=== PATIENT | female | born 1945 | race Caucasian/White ===

== ENCOUNTER 2016-11-17 08:41 | Day surgery (SDC) | payer MEDICARE ==
--- NOTE | 2016-11-16 13:47 | PCM.ANEPRE ---
Anesthesia Pre-Op Review Reason for Review: BMI >45 COMORBIDITIES Anesthesia Recommendations: Proceed with Procedure Additional Comments 71 yo woman for hand case (est 90 min) with Dr Ortiz; BMI 45.8, hgb A1C 5.8, colonoscopy with sedation 08/18/15 without problems, EF 55-60% in 2013. Ok to proceed with usual DOS evaluation. Chart Reviewed by: Syd Brewer MD, MD November 16, 2016 13:47
[2016-11-17] VITALS (11 sets, daily range): BP systolic 139–161; BP diastolic 62–77; PULSE 50–75; RESP 14–23; O2SAT 94–97
[~2016-11-17] VITALS: Ht 160 cm; Wt 112.8 kg
[~2016-11-17 08:41] MED LIST: AMMO385C5 TP; ASCO100089 PO; ASPI81TA3 PO; ATOR20TA65 PO; CHOL100045 PO; CLOB15CR3 TOP; KETACONAZOLE CREAM TP; LACT1CAP67 PO; LOSA25TA21 PO; Lactated Ringer's 1,000 ML IV SCH; MODA200T41 PO; MULT-1073 PO; MYCC TP; NAPR500T PO; PRAM0.252 PO; VILA40TA PO
[2016-11-17] MEDS ORDERED: fentaNYL-PF 50 mCg/mL 2 mL Inj ONE (08:42)
[2016-11-17] MEDS ORDERED: Propofol 10,000 mCg/mL 20 mL Inj ONE (08:42)
[2016-11-17] MEDS ORDERED: Ondansetron 2 mg/mL 2 mL Inj ONE (08:42)
[2016-11-17] MEDS ORDERED: Glycopyrrolate 0.2 MG/ML 1mL Inj ONE (08:42)
[2016-11-17] MEDS ORDERED: Lidocaine PF 1% 30 mL Inj ONE (08:42)
[2016-11-17] MEDS: Lactated Ringer's 1,000 ML IV SCH ×3 (09:57→11:05)
--- NOTE | 2016-11-17 10:02 | PCM.HPANE ---
Patient Data Surgeon Admitting Provider: Attending Provider:Sukhdeep Ortiz DO Primary Care Physician:Luis Graham DO Other Provider:Amy Brown Anesthesia Reason for Visit Left 1ST Carpometacarpal Arthritis Ht/WT & BMI Height (Feet): 5 Height (Inches): 3.00 Weight (Kilograms): 112.8 Body Mass Index 44.00 Allergies Coded Allergies: nickel (Verified Allergy, Severe, RASH, 11/16/16) Sulfa (Sulfonamide Antibiotics) (Verified Allergy, Unknown, UNKNOWN, ) Past Anesthesia History Anesthesia History: Denies:: Abnormal Airway, Anesthesia Reactions, Difficult Intubation, Fam Anesthesia Reaction, Fam Malignant Hypertherm, Malignant Hyperthermia Diabetes History Hx Diabetes?: Yes (10/31/16 HGB A1C 5.8) Type of Diabetes: Type II Glycemic Control: Diet Controlled Current Bedside Blood Glucose: 110 MRSA MRSA: No Medications Blood Thinner: Aspirin Hypertension Medication: Yes (LOSARTAN) Home Meds Incl Beta Marcio: No Reported Medications Cholecalciferol (Vitamin D3) (Vitamin D)1,000 Unit Capsule2,000 Unit PO DAILY # 1 BOTTLE Ref 0 11/16/16 Ascorbic Acid (Vitamin C)1,000 Mg Tab.chew1,000 Mg PO DAILY Ref 0 11/16/16 Vilazodone (Viibryd)40 Mg Ldffdo23 Mg PO BIDWM 11/16/16 Lactobacillus Combination No.4 (Probiotic)1 Each Capsule1 Each PO DAILY 11/16/16 Nystatin 60 Applic/15 Gm Cream1 Applic TP BID 11/16/16 Naproxen (Naprosyn)500 Mg Lbpnux340 Mg PO BID PRN For Pain Ref 0 11/16/16 Pramipexole Dihydrochloride (Mirapex)0.25 Mg Tablet0.25-0.5 Mg PO QPM 11/16/16 [Ketaconazole Cream] No Conflict Check1 Applic TP DAILY 11/16/16 Ammonium Lactate 140 Gm Cream..g.1 Applic TP DAILY 11/16/16 Losartan Potassium 25 Mg Kmcwbi90 Mg PO DAILY 10/30/13 Modafinil 200 Mg Wmcjig745 Mg PO DAILY 10/30/13 Clobetasol Propionate/Emoll (Clobetasol Emollient 0.05% Crm)15 Gm Cream..g.1 Appl TOP BID 10/30/13 Multivits-Min/FA/Lycopene/Lut (Centrum Silver Tablet)1 Each Tablet1 Each PO DAILY 10/30/13 Atorvastatin Calcium 20 Mg Trufzc55 Mg PO DAILY 10/30/13 Aspirin Chew 81 Mg Tab.chew81 Mg PO DAILY 10/30/13 Discontinued Reported Medications Oxybutynin Chloride 5 Mg Tablet5 Mg PO BID 10/30/13 Paroxetine 40 Mg Jciyko11 Mg PO DAILY 10/30/13 Melatonin/Pyridoxine HCl (B6) (Melatonin 10 mg Tablet)1 Each Tab.mphase1 Each PO PRN PRN For Anxiety 10/30/13 History History of ENT Problems?: Yes HEENT History: Positive for:: Cataracts (S/P B/L EXTRACTIONS) Denies:: Abnormal Airway Difficult Intubation Dysphagia Hearing Problem Sinus Problem Denture Type: None Teeth Condition: Within Normal Limits Hx of Heart Problems?: Yes Cardiovascular History: Positive for:: Hypertension (HYPERLIPIDEMIA) Denies:: AICD Atrial Fibrillation Chest Pain Heart Murmur (ECHO 10/2013 EF 55-60%) Irregular Heartbeat Pacemaker Valvular Heart Disease Other Cardiac History: HX OF ANEMIA-??ETIOLOGY Other History/Comments No CP; greater than 4 mets Hx of Respiratory Problem?: No Respiratory History: Positive for:: Use of C-PAP Machine (LUDIVINA+ W/ CPAP SLEEP STUDY 09/2013) Denies:: Asthma COPD Cough Hemoptysis Pneumonia (HOSP. ADMISSION FOR CONFUSION/RESP. FAILURE 10/2013) Tuberculosis Hx Neurologic Problems?: Yes Neurological History: Positive for:: Dizziness (BPPV) Headaches Denies:: CVA Dementia Other Neurological Pertinent: RLS Hx of GI Problems?: Yes Other GI Pertinent History: HX IBS Hx of Problems?: Yes Genitourinary History: Denies:: HX of Hemodialysis Urinary Tract Infection HX of Peritoneal Dialysis: No Other Pertinent History: HX ADRENAL ADENOMA Female Hx: Denies:: Currently Skin History: Positive for:: History Skin Disorders? (SCALP ISSUES,LICHEN SCLEROSIS) Denies:: Pressure Ulcers Hx Musculoskeletal Problems?: No Musculoskeletal History: Positive for:: Degenerative Joint Fibromyalgia Joint Replacement (S/P B/L TKA'S) Musculoskeletal Trauma (S/P ROTATOR CUFF RPR) Osteoarthritis (LT 1ST CARPOMETACARPAL ARTHRITIS=CURRENT PROBLEM) Denies:: Back Injury (C/OF LOWER BACK PAIN) Hx of Psycho/Social Problems?: Yes Psycho Social History: Positive for:: Anxiety Hx Depression Suicide Attempt (as a teenage) Hx Surgeries?: Yes (eye catarac, froy knees, colon resection, shoulder, back ) Hx Any Other Health Problems?: Yes Other History: Denies:: Cancer Endocrine Disease Hospitalization Thyroid Disease History Blood Transfusions: Denies:: Blood Transfusions Hx Diabetes: Yes (10/31/16 HGB A1C 5.8)Bedside Blood Glucose: 110 Hx Alcohol Use: Yes (rare)Hx Substance Use: No Smoking Status: Former Smoker Have You Smoked inLast 12 mo: No Stop/Bang S-Snoring: Do You Snore Loudly: Yes T-Tired: feel tired, fatigued: Yes O-Obsered: Observed not breath: No P-Blood Pressure: treated: Yes B- Body Mass Index > 35 kg/m2: Yes A- Age over 50: Yes N- Neck Large Circumference: Yes G- Gender Male: No LUDIIVNA Total Score: 6 Risk Assessment Category Category 1A: Patient has history of documented sleep apnea, and HAS NOT received any narcotic, sedative or anesthesia administration during this stay. Category 1B: Patient has history of documented sleep apnea, and HAS received any narcotic , sedative or anesthesia administration during this stay Category 2: Patient has SUSPECTED Obstructive Sleep Apnea, and HAS received any narcotic , sedative or anesthesia administration during this stay. Category 3: Patient has SUSPECTED Obstructive Sleep Apnea and HAS NOT received narcotic, sedative or anesthesia administration during this stay. Category 4: Outpatient in Procedural Areas with known sleep apnea or who screen positive for High Risk via the STOP/BANG questionnaire. Exam Exam Vital Signs Vital Signs Date Time Temp Pulse Resp B/P Pulse Ox O2 Delivery O2 Flow Rate FiO2 11/17/16 09:39 36.0 50 16 147/68 97 Room Air 11/17/16 09:39 CPAP/BIPAP General Appearance: Alert, Oriented X3 HEENT/AIRWAY: MP 2, Neck Movement (FROM) Lungs: Clear to Auscultation, Clear to Percussion Heart: Exam Unremarkable, Regular Rate/Rhythm Meds/Labs/Diagnostics Admission Meds Current Medications Lactated Ringer's (Lr) 1,000 ml @ 80 mls/hr [id number] IV Last administered on t 09:57; Start 11/16/16 at 10:35 Bedside Blood Glucose: 110 Plan Impression Patient chart reviewed, patient interviewed and anesthestic plan with risks, benefits, and alternatives discussed, and informed consent obtained. ASA Physical Status: ASA3 Severe Disease (BMI greater than 40) Anesthetic Plan: GA Bene/Risks/Altern/Consents: Yes HP Complete Prior to Induction: Yes Andrey Rm MD Nov 17, 2016 10:02
[2016-11-17] MEDS ORDERED: oxyCODONE-Acetamin 5-325 mg Tablet PO PRN (10:25)
[2016-11-17] MEDS: CeFAZolin Inj 2 GM in IV Premix 1 EACH IV SCH ×2 (10:46→11:05)
[2016-11-17] MEDS ORDERED: Lidocaine 1%-Epi 1:100,000 20 mL Inj NERVEBLOCK ONE (11:13)
[2016-11-17] MEDS ORDERED: Lactated Ringer's 1,000 ML IV SCH (11:36)
[2016-11-17] MEDS ORDERED: Lactated Ringer's 500 ML IV PRN (11:36)
[2016-11-17] MEDS ORDERED: Atropine 0.4 mg/mL Inj IVPUSH PRN (11:40)
[2016-11-17] MEDS ORDERED: Phenylephrine 10,000 mCg/mL Inj IVPUSH PRN (11:40)
[2016-11-17] MEDS ORDERED: Ondansetron 2 mg/mL 2 mL Inj IVPUSH PRN (11:40)
[2016-11-17] MEDS ORDERED: Labetalol 5 mg/mL 4 mL Inj IV PRN (11:40)
[2016-11-17] MEDS ORDERED: EPHEDrine Sulfate 50 mg/mL Inj IVPUSH PRN (11:40)
[2016-11-17] MEDS ORDERED: Lactated Ringer's 1,000 ML IV ONE (12:48)
[2016-11-17] MEDS: fentaNYL-PF 50 mCg/mL 2 mL Inj IVPUSH PRN ×2 (13:29→13:35)
--- NOTE | 2016-11-17 13:41 | PCM.ANEP1 ---
Post Anesthesia PACU Phase 1 Assessment Vital Signs Vital Signs Date Time Temp Pulse Resp B/P Pulse Ox O2 Delivery O2 Flow Rate FiO2 11/17/16 13:20 67 15 153/67 97 11/17/16 13:15 65 14 154/63 95 11/17/16 13:10 69 16 161/77 94 11/17/16 13:05 37.1 65 15 161/74 96 Room Air 11/17/16 09:39 36.0 50 16 147/68 97 Room Air 11/17/16 09:39 CPAP/BIPAP Anesthetic Administered: GA Level of Alertness: Awake, talking GAN's with Equal Strength: Yes Pain: No Nausea or Vomiting: No CV Function & Hydration Stable: Yes Airway Device: Oxygen Delivery: Room Air Lungs: Clear to Auscultation, Clear to Percussion PACU Phase 2 Assessment Complications: No Follow up Care: No Patient Instructions Provided: N/A Andrey Rm MD Nov 17, 2016 13:41
--- NOTE | 2016-11-17 15:13 | OP ---
[address] [address] OPERATIVE REPORT PATIENT: ANSELMO IRBY : 1945 MR#: [id number] ADMIT: 11/17/2016 JOB ID: [id number] DATE OF SURGERY: 11/17/2016 PREOPERATIVE DIAGNOSIS(ES): Left 1st carpal metacarpal arthritis. POSTOPERATIVE DIAGNOSIS(ES): Left 1st carpal metacarpal arthritis. PROCEDURE: 1. Left 1st carpal metacarpal arthroplasty with trapezium excision. 2. Left hand transfer of flexor carpi radialis longus tendon to the dorsum of the hand to perform a suspension plasty. SURGEON: Sukhdeep Ortiz D.O. PIPE MAKER: Betsey Zapata PA-C ANESTHESIA: General. HISTORY: The patient is a pleasant 71-year-old female with a longstanding history of bilateral basilar thumb pain. She failed conservative treatment as I started her with utilization of braces and anti-inflammatories and offered injections. With the failure of conservative treatment and continued pain to the left thumb, I discussed with the patient the option to proceed with a first CMC arthroplasty with FCR tendon transfer. She understood the risks include, but not limited to, neurovascular injury, tendon injury, infection, failure of fixation, stiffness, persistent pain, all of which may require further intervention. The patient had all questions answered. Consent was signed and placed in chart. PROCEDURE IN DETAIL: The patient was brought to the operative suite and placed supine on the operating room table. Surgical time-out was performed. Everyone in the room was in agreement. After appropriate anesthesia was obtained, a left upper arm tourniquet was applied, and the left upper extremity was prepped and draped in a sterile fashion. Left upper extremity then exsanguinated and tourniquet inflated to 250 mmHg. A Medina incision was made between the glabrous and non-glabrous skin centered at the level of the 1st CMC joint. The adductor pollicis longus was reflected dorsally and longitudinal capsulotomy was then performed exposing the trapezium. The trapezium was freed up from the surrounding soft tissues including the capsule and excised in a piecemeal fashion, first utilizing an osteotome to divide up the trapezium into four quadrants. After complete removal of the trapezium, copious irrigation was performed. Attention was turned towards harvesting the FCR tendon. Two transverse incisions were made in the distal volar forearm. The FCR tendon was identified and transected proximally and shuttled distally through the most distal incision and eventually at the operative site overlying the 1st CMC space. The tendon was then split in half all the way down towards its insertion. This was followed by drilling with a 3.2 mm drill from the dorsal radial aspect of the 1st metacarpal base to the volar ulnar base of the 1st metacarpal. Irrigation was performed and any loose fragments were then excised. The smallest limb of the FCR tendon half was shuttled through the prepared hole and then with tension applied with traction and abduction to the thumb, the FCR limb that was passed through the metacarpal was then passed through the other FCR tendon half. This was secured with a Pulvertaft weave. X-ray was utilized to ensure that trapeziectomy space was well maintained. The Pulvertaft weave was then completed with two more additional passes in a 90-90 configuration and secured with 3-0 Ethibond. The remaining free FCR tendon ends were then tied with a 4-0 Vicryl to form an anchovy and then secured deep to the capsule at the FCR insertion with an additional Ethibond suture. Further irrigation was performed followed by closure of the capsule with 3-0 Ethibond and the overlying fascia with 4-0 Vicryl. The patient was then placed into a well-padded, well-molded thumb spica splint. ESTIMATED BLOOD LOSS: Less than 5 cc. COMPLICATIONS: None. DISPOSITION: The patient tolerated the procedure well. Anesthesia was reversed. The patient was transferred back to recovery. SPECIMENS: The trapezium removed in piecemeal fashion and disposed of. POSTOPERATIVE PLAN: The patient will followup with occupational therapy within a week to be transitioned into a thumb-spica brace. She will be in that brace until six weeks prior to initiating any range of motion with therapy.
== END 2016-11-17 23:59 | disposition home or self-care (01) ==
LOC: SAS 08:41
PROVIDERS: ATTEND Orthopaedic Surgery
DX: M18.12 Unilateral primary osteoarthritis of first carpometacarpal joint, left hand (principal); I10 Essential (primary) hypertension; E78.5 Hyperlipidemia, unspecified; F32.9 Major depressive disorder, single episode, unspecified; E11.9 Type 2 diabetes mellitus without complications; G47.33 Obstructive sleep apnea (adult) (pediatric); H81.10 Benign paroxysmal vertigo, unspecified ear; E66.01 Morbid (severe) obesity due to excess calories; Z86.010 Personal history of colon polyps; Z96.652 Presence of left artificial knee joint; Z79.82 Long term (current) use of aspirin; Z87.891 Personal history of nicotine dependence; Z68.42 Body mass index [BMI] 45.0-49.9, adult
CPT/HCPCS: 25310; 25447; J0690; J2405; J3010; J7120